=== PATIENT | female | born 1995 | race Hispanic/Latino ===

== ENCOUNTER → 2016-02-26 | Outpatient (CLI) | payer OTHER | LOC: M LAB 16:00 | PROVIDERS: ATTEND Advanced Practice Midwife | DX: N97.9 Female infertility, unspecified (principal) ==

== ENCOUNTER → 2016-04-25 | Outpatient (CLI) | payer OTHER ==
[2016-04-25 14:10] LABS: BASO % 0.2 % (0.0-1.0); EOS # 0.1 K/mm3 (0.0-0.50); EOS % 1.3 % (0.0-3.0); LARGE UNSTAINED CELL # 0.1 K/mm3 (0.0-0.4); LARGE UNSTAINED CELL % 1.6 % (0.0-4.0); LYMPH % 15.9 % (24.0-44.0); MEAN CORPUSCULAR HEMOGLOBIN 29.2 pg (27.0-33.0); MEAN CORPUSCULAR HGB CONC 33.3 g/dl (32.0-36.5); MEAN CORPUSCULAR VOLUME 87.6 fl (80.0-96.0); MONO # 0.4 K/mm3 (0.0-0.8); MONO % 6.5 % (0.0-5.0); NEUTROPHILS # 4.8 K/mm3 (1.8-7.7); NEUTROPHILS % 74.5 % (36.0-66.0); PLATELET COUNT, AUTOMATED 256 k/mm3 (150-450); RED CELL DISTRIBUTION WIDTH 12.6 % (11.5-14.5); WHITE BLOOD COUNT 6.5 K/mm3 (4.0-10.0)
[2016-04-25 22:51] LABS: CONTROL LINE INT CTR LINE PRESENT; HIV SCRN NEGATIVE (NEGATIVE); HIV SCRN1 NEGATIVE (NEGATIVE)
[2016-04-26 10:55] LABS: HBsAg Prenatal NEGATIVE (NEGATIVE)
== END ==
LOC: M SMT 09:02
PROVIDERS: ATTEND Advanced Practice Midwife
DX: Z36 Encounter for antenatal screening of mother (principal); Z3A.00 Weeks of gestation of pregnancy not specified

== ENCOUNTER 2016-05-13 15:05 | Emergency (ER) | payer OTHER ==
[~2016-05-13] VITALS: Ht 160 cm; Wt 52.2 kg
[2016-05-13] MEDS ORDERED: NS 1,000 ML IV ONE (16:45)
[2016-05-13 18:20] VITALS: BP 127/63
== END 2016-05-13 18:28 | disposition home or self-care (01) ==
LOC: M ED 16:34
DX: O21.9 Vomiting of pregnancy, unspecified (principal); Z3A.10 10 weeks gestation of pregnancy

== ENCOUNTER → 2016-06-27 | Outpatient (CLI) | payer OTHER | LOC: M LAB 13:41 | PROVIDERS: ATTEND Advanced Practice Midwife | DX: Z31.69 Encounter for other general counseling and advice on procreation (principal) ==

== ENCOUNTER → 2016-07-16 | Outpatient (CLI) | payer OTHER ==
--- NOTE | 2016-07-16 15:43 | REP ---
Clinical: Anatomical evaluation. Comparison: None . Findings: Examination demonstrates a single live intrauterine in breech presentation. motion is identified by technologist. Placenta is noted posteriorly and grade zero without evidence for placenta previa or abruption. Amniotic fluid volume is normal. Cervix measures 3.4 cm in length and appears closed. Nuchal cord cannot be excluded Gestational age by LMP left 19 weeks 0 days with YAYA 12/10/2016 . Gestational age by current measurements 19 weeks 4 days with YAYA 12/06/2016 . FHR equals 147 beats per minute. BPD 4.5 cm 19 weeks 4 days HC 16.8 cm 19 weeks 3 days AC 14.2 cm 19 weeks 4 days FL 3.0 cm 19 weeks 2 days HL 3.1 cm 20 weeks 0 days HC/AC ratio 1.19 Estimated weight 291 grams ( 62nd percentile). Anatomical assessment demonstrates normal structures including cranium, choroid plexus, cavum, cerebellum/posterior fossa, facial features, lungs, four-chamber heart/ventricular outflow tracts, diaphragm, stomach, cord insertion/three-vessel cord, kidneys/bladder, spine, and extremities. Impression: 1. Single live intrauterine in breech presentation demonstrating appropriate oval growth. 2. Nuchal cord cannot be excluded. 3. Anatomical assessment is complete and normal. Signed by Sebastien Segura MD 07/16/2016 03:34 P
== END ==
LOC: M RAD 14:38
PROVIDERS: ATTEND Advanced Practice Midwife
DX: Z36 Encounter for antenatal screening of mother (principal); O32.1XX0 Maternal care for breech presentation, not applicable or unspecified; Z3A.19 19 weeks gestation of pregnancy

== ENCOUNTER → 2016-09-17 | Outpatient (CLI) | payer OTHER ==
[~2016-09-17] MED LIST: IBUP-1114 PO; OXYC1TAB23 PO
[2016-09-17 13:14] LABS: MEAN CORPUSCULAR HEMOGLOBIN 31.7 pg (27.0-33.0); MEAN CORPUSCULAR HGB CONC 33.5 g/dl (32.0-36.5); MEAN CORPUSCULAR VOLUME 94.4 fl (80.0-96.0); RED CELL DISTRIBUTION WIDTH 13.4 % (11.5-14.5); WHITE BLOOD COUNT 7.3 K/mm3 (4.0-10.0)
== END ==
LOC: M SMT 08:44
PROVIDERS: ATTEND Advanced Practice Midwife
DX: Z36 Encounter for antenatal screening of mother (principal); Z3A.00 Weeks of gestation of pregnancy not specified

== ENCOUNTER → 2016-11-13 | Outpatient (REF) | payer OTHER | LOC: M LAB REF 13:08 | PROVIDERS: ATTEND Obstetrics & Gynecology | DX: Z34.83 Encounter for supervision of other normal pregnancy, third trimester (principal) ==

== ENCOUNTER 2016-11-29 16:42 | Inpatient (IN) | payer OTHER ==
[~2016-11-29] VITALS: Ht 160 cm; Wt 68.0 kg
[2016-11-29 17:14] VITALS: BP 119/77
[2016-11-29 18:09] VITALS: BP 112/72
[2016-11-29 21:16] LABS: MEAN CORPUSCULAR HEMOGLOBIN 31.1 pg (27.0-33.0); MEAN CORPUSCULAR HGB CONC 34.1 g/dl (32.0-36.5); MEAN CORPUSCULAR VOLUME 91.1 fl (80.0-96.0); RED CELL DISTRIBUTION WIDTH 13.1 % (11.5-14.5); WHITE BLOOD COUNT 10.3 10^3/uL (4.0-10.0)
--- NOTE | 2016-11-29 21:47 | HPE ---
DATE OF ADMISSION: 11/29/2016 HISTORY: A 21-year-old 1, para 0 female at 38-3/7 weeks gestation by last menstrual period (LMP), consistent with an 8-week ultrasound, estimated date of confinement (EDC) of 12/10/2016, presents with regular contractions every 3-4 minutes. For the last several hours, the contractions increased in intensity. There is no vaginal bleeding. COURSE: The patient initiated care at 8 weeks gestation on 05/02/2016. Her first trimester blood pressure was 108/74, weight 119 pounds. care was unremarkable. MEDICAL HISTORY: None. SURGICAL HISTORY: None. ALLERGIES: None. SOCIAL HISTORY: The father of the baby is involved. The patient is from [place]. She lives on [address]. She denies cigarettes, alcohol or drug use. FAMILY HISTORY: Noncontributory. PHYSICAL EXAMINATION: Blood pressure 124/78, pulse 84. She appears very uncomfortable. Head and neck exam normal. Lungs clear. Heart: Regular rate and rhythm. Abdomen: Nontender and gravid. heart tones: Category 1. Sterile vaginal exam: 1 cm, 90% effaced, -2 station, vertex. Contractions: Every 1-2 minutes, strong. Extremities: Nontender. LABORATORY: Blood type is O positive, rubella immune, RPR nonreactive. Hepatitis B and C negative. HIV negative. Diabetes screen 94. GBS negative on 11/13/2016. ASSESSMENT: A 21-year-old 1 at 38-3/7 weeks gestation, presents in early labor. The patient is admitted on 11/29/2016.
[2016-11-30] VITALS (32 sets, daily range): BP systolic 99–132; BP diastolic 51–98
[2016-11-30] MEDS ORDERED: FENTANYL 2MCG/ML ROPIVACAINE 0.2% IN 0.9% NACL 200ML IVBAG As Ordered ONE (10:55)
[2016-11-30] MEDS ORDERED: LR 1,000 ML IV SCH (12:15)
[2016-11-30] MEDS ORDERED: ONDANSETRON 4MG/2ML VIAL (J2405) IV PRN (12:45)
[2016-11-30] MEDS ORDERED: ePHEDrine SULFATE 25 MG/5 ML(5MG/ML) SYRINGE IV PRN (12:45)
[2016-11-30] MEDS ORDERED: diphenhydrAMINE INJ 50MG/ML VIAL (J1200) IV PRN (12:45)
[2016-11-30] MEDS ORDERED: REFRIGERATOR IV KEYS XX PRN (12:45)
[2016-11-30] MEDS ORDERED: EPIDURAL COMMENT XX SCH (12:45)
[2016-11-30] MEDS ORDERED: LACTATED RINGER'S 1000 ML IV PRN (12:45)
[2016-11-30] MEDS ORDERED: FENTANYL/ROPIVACAINE/NACL BAG 200 ML EPIDURAL SCH (12:45)
[2016-11-30] MEDS ORDERED: EPIDURAL/PCA KEYS XX PRN (12:45)
[2016-11-30] MEDS ORDERED: NALOXONE INJ 0.4 MG/1 ML VIAL (J2310) IV PRN (12:45)
[2016-11-30] MEDS ORDERED: OXYTOCIN DRIP 30 UNITS in APPROPRIATE DILUENT 1 EA IV SCH (16:00)
[2016-12-01] VITALS (14 sets, daily range): BP systolic 84–119; BP diastolic 55–75
[2016-12-01] MEDS ORDERED: OXYTOCIN INJ 10 UNITS/ML VIAL (J2590) As Ordered ONE (10:00)
[2016-12-01] MEDS ORDERED: MORPHINE PRES-FREE INJ 10 MG/10 ML VIAL (J2274) As Ordered ONE (10:01)
[2016-12-01] MEDS ORDERED: LIDOCAINE PRES-FREE 2% 10ML AMP As Ordered ONE (10:05)
[2016-12-01] MEDS ORDERED: BICITRA 30ML SOLN UDC PO ONE (10:15)
[2016-12-01] MEDS ORDERED: KETOROLAC 60 MG/2 ML VIAL (J1885) As Ordered ONE (10:46)
[2016-12-01] MEDS ORDERED: ONDANSETRON 4MG/2ML VIAL (J2405) As Ordered ONE (10:46)
[2016-12-01] MEDS ORDERED: fentaNYL 100 MCG/2 ML INJECTION (J3010) As Ordered ONE (10:53)
[2016-12-01 11:14] LABS: CORD GAS ABE V -6.7; CORD GAS HCO3 V 18.4 MEQ/L; CORD GAS PCO2 V 36.2 mmHg; CORD GAS PH V 7.325 UNITS; CORD GAS PO2 V 32.2 mmHg; CORD GAS SBC V 18.5 MEQ/L; CORD GAS TCO2 V 19.6 MEQ/L
[2016-12-01] MEDS ORDERED: ONDANSETRON 4MG/2ML VIAL (J2405) IV PRN ×2 (11:30→11:45)
[2016-12-01] MEDS ORDERED: MEASLES,MUMPS,RUBELLA VACCINE INJ (MMR-II) (90707) SC SCH (11:30)
[2016-12-01] MEDS ORDERED: OXYTOCIN DRIP 30 UNITS in APPROPRIATE DILUENT 1 EA IV ONE (11:30)
[2016-12-01] MEDS ORDERED: PERCOCET 5MG/325MG TAB PO PRN ×2 (11:30)
[2016-12-01] MEDS ORDERED: RHOGAM 300 MCG (1500 IU) INJ (J2790) IM SCH (11:30)
[2016-12-01] MEDS ORDERED: DOCUSATE SODIUM 100 MG CAP PO PRN (11:30)
[2016-12-01] MEDS ORDERED: PHYTONADIONE 1 MG/0.5 ML SYRINGE (J3430) As Ordered ONE (11:33)
[2016-12-01] MEDS ORDERED: ERYTHROMYCIN OPHTH OINT As Ordered ONE (11:33)
[2016-12-01] MEDS ORDERED: HEPATITIS B VAC *BIRTH DOSE ONLY*(ENGERIX) 10 MCG/0.5 ML SYRINGE As Ordered ONE (11:33)
[2016-12-01] MEDS ORDERED: fentaNYL 100 MCG/2 ML INJECTION (J3010) IV PRN (11:45)
[2016-12-01] MEDS ORDERED: NALBUPHINE HCL 10 MG/ML AMP (J2300) IV PRN (11:45)
--- NOTE | 2016-12-01 11:45 | RO ---
DATE OF PROCEDURE: 12/01/2016 PREOPERATIVE DIAGNOSIS: 38 plus weeks, labor, brow presentation, arrest of dilation. POSTOPERATIVE DIAGNOSIS: 38 plus weeks, labor, brow presentation, arrest of dilation. PROCEDURE: Primary low transverse section. SURGEON: Aurelio Rodriguez MD MECHANIC ASSISTANT: Hortencia Pardo MD ANESTHESIA: Epidural. ESTIMATED BLOOD LOSS: 600 mL. URINE OUTPUT: 100 mL. FINDINGS: 8 pound 3 ounce female , score 5, 7 and 9, with a brow presentation. Venous blood gas 7.32, base excess minus 6.7. OPERATIVE SUMMARY: The patient was taken to the operating room where epidural anesthesia was induced. A Saenz catheter was already in place. A Pfannenstiel skin incision was made with the scalpel and carried through to the fascia. The fascia was nicked and extended. The fascia was dissected off the rectus muscles. The peritoneal cavity was entered. The bladder flap was created. A curvilinear incision was made in the lower uterine segment until clear fluid was noted. This was extended manually. The was delivered from the vertex position with the use of a vacuum extractor. The shoulders delivered with ease. The cord was doubly clamped and cut. The was handed off to the awaiting nurses. The placenta was expressed. The uterus was exteriorized and cleared of clots and debris. Uterine incision was closed with #0 Vicryl in a running locked fashion. A second imbricating layer of #0 Vicryl was placed. The uterus was placed back in the abdominal cavity. The peritoneum was closed with #2-0 Vicryl. The fascia was closed with #0 Vicryl in a running fashion. The deep layer was irrigated. The skin was closed with #4-0 Monocryl subcuticular sutures. Sponge, instrument and needle counts were correct.
[2016-12-01] MEDS: LR 1,000 ML IV SCH ×2 (12:50→19:42)
[2016-12-01] MEDS: KETOROLAC 30 MG/ML VIAL (J1885) IV SCH ×2 (17:36→23:28)
[2016-12-01] MEDS ORDERED: LACTATED RINGER'S 1000 ML IV ONE (19:45)
[2016-12-01] MEDS ORDERED: OXYC1TAB23 PO (22:53)
[2016-12-02 02:00] VITALS: BP 95/57
[2016-12-02] MEDS: LR 1,000 ML IV SCH (03:21)
[2016-12-02 06:00] VITALS: BP 129/76
[2016-12-02] MEDS: KETOROLAC 30 MG/ML VIAL (J1885) IV SCH ×2 (06:39→11:19)
[2016-12-02 06:40] LABS: MEAN CORPUSCULAR HEMOGLOBIN 31.2 pg (27.0-33.0); MEAN CORPUSCULAR HGB CONC 33.8 g/dl (32.0-36.5); MEAN CORPUSCULAR VOLUME 92.4 fl (80.0-96.0); RED CELL DISTRIBUTION WIDTH 13.3 % (11.5-14.5); WHITE BLOOD COUNT 11.6 10^3/uL (4.0-10.0)
[2016-12-02] MEDS: PRENATAL VITAMINS CHEWABLE TABLET PO SCH (07:36)
[2016-12-02 10:36] VITALS: BP 115/74
[2016-12-02 14:30] VITALS: BP 109/74
[2016-12-02] MEDS: IBUPROFEN 800 MG TAB PO SCH (18:06)
[2016-12-02 18:23] VITALS: BP 119/75
[2016-12-02 22:00] VITALS: BP 118/70
[2016-12-03] MEDS: IBUPROFEN 800 MG TAB PO SCH ×2 (03:08→11:00)
[2016-12-03 06:00] VITALS: BP 114/61
[2016-12-03] MEDS: PRENATAL VITAMINS CHEWABLE TABLET PO SCH (09:33)
--- NOTE | 2016-12-03 10:24 | DSES ---
DATE OF ADMISSION: 11/29/2016 DATE OF DISCHARGE: HISTORY: A 21-year-old G1, P0 female at 38-3/7 weeks' gestation by last menstrual period (LMP) consistent with an 8-week ultrasound, presents with regular contractions every 3-4 minutes for the last several hours. The contractions increased in intensity. There is no vaginal bleeding. HOSPITAL COURSE: The patient was admitted on 11/29/2016 and diagnosed with labor. She made slow progress in labor. On 12/01/2016, the patient was diagnosed with arrest of dilation. Vaginal examination revealed a brow presentation. This explained the slow progress in labor. On 12/01/2016, she underwent a primary low transverse section for an 8-pound 3-ounce female infant. There were no complications. Her postoperative course was unremarkable. She adequately returned to bladder and bowel function. She was deemed stable for discharge on postoperative day #2. ADMISSION DIAGNOSIS: , term labor. DISCHARGE DIAGNOSIS: Delivered. PROCEDURE: Primary low transverse section. DISPOSITION: The patient will followup with Dr. Rodriguez in 2 weeks.
[2016-12-03] MEDS ORDERED: IBUP-1114 PO (10:48)
== END 2016-12-03 11:50 | disposition home or self-care (01) | DRG 766 ==
LOC: M LDO 16:42 → M LDI 20:28 → M OBS 12-01 12:42
PROVIDERS: ADMIT Specialist; ATTEND Specialist
PROC: 10D00Z1 Extraction of Products of Conception, Low, Open Approach (ICD-10-PCS; principal; 2016-12-01)
DX: O32.3XX0 Maternal care for face, brow and chin presentation, not applicable or unspecified (principal); O62.0 Primary inadequate contractions; Z3A.38 38 weeks gestation of pregnancy